=== PATIENT | female | born 1965 | race Two or more races ===

== ENCOUNTER 2017-08-08 17:01 | Emergency (ER) | payer BC ==
[2017-08-08 18:14] VITALS: BP 143/90
--- NOTE | 2017-08-08 18:41 | UC ---
Throat Pain/Nasal Philip HPI - HPI Summary HPI Summary: feeling run down , achey sore throat began yesterday daughter dx with strep - History of Current Complaint Chief Complaint: UCGeneralIllness Stated Complaint: SORE THROAT Time Seen by Provider: 08/08/17 18:32 Hx Obtained From: Patient Hx Last Menstrual Period: 07/10/17 ?: No Onset/Duration: Sudden Onset Severity: Moderate Pain Intensity: 5 Cough: None - Allergies/Home Medications Allergies/Adverse Reactions: Allergies Allergy/AdvReac Type Severity Reaction Status Date / Time Penicillins Allergy Hives Verified 08/08/17 18:16 Sulfa (Sulfonamide Allergy Hives Verified 08/08/17 18:16 Antibiotics) sulfamethoxazole Allergy Hives Verified 08/08/17 18:16 [From Bactrim] trimethoprim [From Bactrim] Allergy Hives Verified 08/08/17 18:16 PMH/Surg Hx/FS Hx/Imm Hx Previously Healthy: No Psychological History: Depression - Surgical History Surgical History: Yes Surgery Procedure, Year, and Place: csection, left knee acl - Family History Known Family History: Positive: None - Social History Occupation: Employed Full-time Lives: With Family Alcohol Use: Occasionally Substance Use Type: None Smoking Status (MU): Former Smoker Review of Systems Constitutional: Chills, Fatigue Skin: Negative Eyes: Negative ENT: Sore Throat Respiratory: Negative Cardiovascular: Negative Gastrointestinal: Negative Genitourinary: Negative Motor: Negative Neurovascular: Negative Musculoskeletal: Negative Neurological: Negative Psychological: Negative Is Patient Immunocompromised?: No All Other Systems Reviewed And Are Negative: Yes Physical Exam Triage Information Reviewed: Yes Appearance: Well-Appearing, No Pain Distress, Well-Nourished Vital Signs: Initial Vital Signs Temp 99.1 F 08/08/17 18:08 Pulse 61 08/08/17 18:08 Resp 16 08/08/17 18:08 BP 143/90 08/08/17 18:08 Pulse Ox 100 08/08/17 18:08 Vital Signs Reviewed: Yes Eye Exam: Normal Eyes: Positive: Conjunctiva Clear ENT Exam: Normal ENT: Positive: Normal ENT inspection, Hearing grossly normal, Pharynx normal, TMs normal. Negative: Trismus, Muffled voice, Hoarse voice, Dental tenderness, Sinus tenderness Dental Exam: Normal Neck exam: Normal Neck: Positive: Supple, Nontender, No Lymphadenopathy Respiratory Exam: Normal Respiratory: Positive: Chest non-tender, No respiratory distress, No accessory muscle use Cardiovascular Exam: Normal Cardiovascular: Positive: RRR, Pulses Normal, Brisk Capillary Refill Musculoskeletal Exam: Normal Musculoskeletal: Positive: Strength Intact, ROM Intact, No Edema Neurological Exam: Normal Neurological: Positive: Alert, Muscle Tone Normal Psychological Exam: Normal Skin Exam: Normal Diagnostics - Laboratory Diagnostic Studies Completed/Ordered: RST (-) Throat Pain/Nasal Course/Dx - Course Assessment/Plan: rest increase fluids, follow blood pressure with PCP, treat with zithromax - Differential Dx/Diagnosis Provider Diagnoses: Pharyngitis Discharge - Discharge Plan Condition: Stable Disposition: HOME Prescriptions: Azithromycin TAB* [Zithromax TAB (Z-OSVALDO) 250 mg #6 tabs] 2 tab PO .TODAY, THEN 1 DAILY #1 osvaldo Patient Education Materials: Ibuprofen (By mouth), Pharyngitis (ED), Hypertension (ED) Referrals: Ricky Cook MD [Medical Doctor] - 1 Week
== END 2017-08-08 19:23 | disposition home or self-care (01) ==
LOC: UCEAST 17:01
DX: J02.9 Acute pharyngitis, unspecified (principal); R53.83 Other fatigue; F32.9 Major depressive disorder, single episode, unspecified; Z88.1 Allergy status to other antibiotic agents; Z88.0 Allergy status to penicillin; Z88.2 Allergy status to sulfonamides; Z87.891 Personal history of nicotine dependence
CPT/HCPCS: 87651; 99212; G0463